=== PATIENT | female | born 1970 | race Caucasian/White ===

== ENCOUNTER 2018-07-17 08:51 | Emergency (ER) | payer OTHER ==
[~2018-07-17] VITALS: Ht 167.6 cm; Wt 78.6 kg
[2018-07-17 08:54] VITALS: BP 159/91; PULSE 91; RESP 20; Ht 167.6 cm; Wt 78.6 kg
--- NOTE | 2018-07-17 09:23 | ERD ---
ER Documentation Chief Complaint Chief Complaint Complains of left foot pain x 2 weeks HPI 48-year-old female is complaining of left foot pain times 2 weeks. Patient thinks that the foot pain may be caused by can of tuna dropped on her foot around that time. Patient states that she has history of congenital decreased sensation, but she did remember feeling pain after lifting a can fell on her foot. She also think that foot pain may be caused by calf raising exercises. For the last 2 weeks, she has been taking NSAIDs, without relief of the pain or swelling of the left foot. Denies fever or chills. ROS All systems reviewed and are negative except as per history of present illness. Medications Home Meds Active Scripts Naproxen* (Naprosyn*) 500 Mg Tablet, 500 MG PO BID PRN for PAIN AND/OR INFLAMMATION, #30 TAB Prov:MARGARITA BAXTER. [employer] APPRENTICE 07/17/18 Allergies Allergies: Coded Allergies: fentanyl (Verified Allergy, Intermediate, Hives, 07/17/18) PMhx/Soc Anesthesia Reaction: Yes Hx Neurological Disorder: No Hx Respiratory Disorders: No Hx Cardiac Disorders: No Hx Psychiatric Problems: No Hx Miscellaneous Medical Probl: Yes (RA) Hx Alcohol Use: Yes (2 drinks per week.) Hx Substance Use: No Hx Tobacco Use: No Smoking Status: Never smoker Physical Exam Vitals Vital Signs Date Temp Pulse Resp B/P (MAP) Pulse Ox O2 O2 Flow FiO2 Time Delivery Rate 07/17/18 98.9 91 20 159/91 99 08:54 (113) Physical Exam General: Well-developed, well-nourished, conscious and coherent, in no distress Skin: Warm and dry without rash, good texture and turgor Head: Normocephalic without evidence of trauma Chest: Normal AP diameter. Good expansion without retractions. Nontender. Lungs are clear to auscultate bilaterally with good tidal volume Heart: Regular rate and rhythm. No murmur, rub, or gallops heard Abdomen: Soft and nontender without masses, guarding, or rebound. Bowel sounds are active. No hepatosplenomegaly Extremities: Dorsal left foot swollen over the metatarsal. Tenderness over the third metatarsal. Full range of motion, but reports pain with plantarflexion of the toes. Good strength bilaterally. No erythema, ecchymosis, or edema. Peripheral pulses are intact. Sensation intact Neuro: Alert and oriented 4, GCS 15. Results 24 hrs PROCEDURE: XR Foot. CLINICAL INDICATION: Left foot pain x 2 weeks TECHNIQUE: AP, lateral and oblique views of the left foot were obtained. The images were reviewed on a PACS workstation. COMPARISON: None. FINDINGS: The bones of the foot appear intact, with no evidence of fracture, dislocation, or subluxation. The joint spaces are preserved. Bone mineralization is normal. There is mild degenerative spurring at the plantar calcaneus. Soft tissues are unremarkable. IMPRESSION: Mild plantar calcaneal spurring, otherwise no acute findings. RPTAT: [facility] Physician Shirley Date Time Electronically viewed and signed by Physician Shirley on 07/17/2018 09:48 xB/ CC: MARGARITA BAXTER. [employer]ER G[employer]ER APPRENTICE Procedures/MDM Well-appearing 48-year-old female present ED with left foot pain times 2 weeks. X-rays of the left foot is negative for fractures or dislocations. Incidental plantar calcaneal spur is noted on x-ray. However, this does not correspond to the location of the pain. I doubt pain is caused by a bone spur. Likely patient has sustained a sprain of the foot. I doubt gout, patient or foot infection. Patient advised to follow-up with PCP for physical therapy referral. Patient appears well, stable for discharge and outpatient management. Medical decision making shared with patient and family. Education provided to patient and family. Patient and family expressed understanding of the plan. Medications on discharge: Naproxen. Follow-up: Primary care provider in 2-3 days or return to ED if worse. Disclaimer: Inadvertent spelling and grammatical errors are likely due to EHR/dictation software use and do not reflect on the overall quality of patient care. Also, please note that the electronic time recorded on this note does not necessarily reflect the actual time of the patient encounter. Departure Diagnosis: Primary Impression: Foot pain Laterality: left Qualified Codes: M79.672 - Pain in left foot Condition: Stable MARGARITA BAXTER PU[employer]ER G[employer]ER APPRENTICE Jul 17, 2018 09:23
[2018-07-17] MEDS ORDERED: NAPR-985 PO (10:03)
== END 2018-07-17 10:11 | disposition home or self-care (01) ==
LOC: FTE 08:51
DX: M79.672 Pain in left foot (principal); R40.2412 Glasgow coma scale score 13-15, at arrival to emergency department